=== PATIENT | female | born 1950 | race Caucasian/White ===

== ENCOUNTER 2016-08-29 14:10 | Emergency (ER) | payer MEDICARE, OTHER ==
[~2016-08-29] VITALS: Ht 157.5 cm; Wt 73.0 kg
[2016-08-29 14:16] VITALS: Ht 157.5 cm; Wt 73.0 kg
[2016-08-29] MEDS ORDERED: SOD CHLORIDE 0.9% 1,000 ML IV STA (18:50)
[2016-08-29 18:51] LABS: URINE BLOOD (Dip) POC Trace-lysed (NEGATIVE)
--- NOTE | 2016-08-29 18:57 | ERA ---
ER Documentation Chief Complaint Date/Time DATE: 08/29/16 TIME: 18:57 Chief Complaint sent by pmd for high blood glucose , pt asymptomatic , intake acc 522 HPI 66-year-old female with history of diabetes mellitus type 2 refer to the ED from [facility] for evaluation of hyperglycemia and fever. Patient presented to the clinic today for her usually scheduled appointment. Accu-Chek was high and temperature was 101.3. Patient is asymptomatic. She denies URI symptoms, odynophagia or body aches. Denies abdominal pain, nausea, vomiting, diarrhea or constipation. No chest pain or palpitations. No shortness of breath or cough. No leg pain or swelling. Denies headache or neck pain. No visual changes, focal weakness or numbness. No skin rash. No fevers or chills. ROS All systems reviewed and are negative except as per history of present illness. Medications Home Meds Active Scripts Nitrofurantoin Monohyd Macrocr* (Macrobid*) 100 Mg Capsr, 100 MG PO HS for 7 Days, CAP Prov:ALESIA ESPINOSA MD 08/29/16 Reported Medications Insulin Aspart* (Novolog Insulin Pen*) 100 Unit/Ml Soln, 5 UNIT SC WITH DINNER, EA 15 MIN AC BIDEST MEALS 08/29/16 Insulin Detemir (Levemir Flextouch) 100 Unit/1 Ml Insuln.pen, 28 UNIT SQ QAM 08/29/16 Glipizide* (Glipizide*) 10 Mg Tablet, 10 MG PO AC BREAKFAST DINNER, TAB 08/29/16 Clopidogrel Bisulfate (Clopidogrel) 75 Mg Tablet, 75 MG PO DAILY, #30 TAB 08/29/16 Metformin* (Glucophage*) 500 Mg Tab, 500 MG PO WITH LUNCH DINNER, #60 TAB 08/29/16 Allergies Allergies: Coded Allergies: No Known Allergy (Unverified , 08/29/16) PMhx/Soc Reviewed in chart. As per HPI. History of Surgery: Yes (brain) Anesthesia Reaction: No Hx Neurological Disorder: No Hx Respiratory Disorders: No Hx Cardiac Disorders: No Hx Psychiatric Problems: No Hx Miscellaneous Medical Probl: No Hx Alcohol Use: No Hx Substance Use: No Hx Tobacco Use: No Smoking Status: Never smoker FmHx No stroke or cancer. Not relevant to presenting complaint. Physical Exam Vitals Vital Signs Date Time Temp Pulse Resp B/P Pulse Ox O2 Delivery O2 Flow Rate FiO2 08/29/16 21:46 97.8 65 16 134/83 98 Room Air 08/29/16 19:30 97.9 71 20 130/78 96 Room Air 08/29/16 14:16 99.3 90 18 147/89 98 Physical Exam Const: Alert, no acute distress Head: Atraumatic Eyes: Normal Conjunctiva ENT: Normal External Ears, Nose and Mouth. Pharynx is clear without erythema or exudate Neck: Full range of motion. Nontender Resp: Breath sounds are equal and clear to auscultation bilaterally Cardio: Regular rate and rhythm, no murmurs Abd: Soft, non tender, non distended. Normal bowel sounds. No rebound or guarding. No masses or abnormal pulsations. Skin: No petechiae or rashes Back: No midline or flank tenderness Ext: No cyanosis, or edema Neur: Awake and alert. No focal deficit observed. Psych: Normal Mood and Affect Result Diagram: 08/29/16192908/29/161929 Results 24 hrs Laboratory Tests Test 08/29/16 14:21 08/29/16 16:39 08/29/16 18:50 08/29/16 18:52 Bedside Glucose 522mg/dL 479mg/dL Blood Gas Specimen Source Blood venous Arterial Blood Date Drawn 08/29/2016 7:20:18 PM Arterial Blood Gas Puncture Site VENOUS LINE Garett Test N/A Venous Blood pH 7.407 Venous Blood pCO2 (Temp Corrected) 41.9mmHG Venous Blood pO2 (Temp Corrected) 35.9mmHG Venous Blood HCO3 25.8mmol/L Venous Blood Oxygen Saturation 72.0mmHG Venous Blood Base Excess 0.9mmol/L Venous Blood Total Hemoglobin 15.0g/dl Venous Blood Oxyhemoglobin 71.5% Venous Blood Methemoglobin 0.2% Carboxyhemoglobin 0.5% Blood Gas Temperature 37.0C Blood Gas Modality ROOM AIR FiO2 21.0% Blood Gas Notified Whom UP Blood Gas Notified Time 08/29/2016 7:33:15 PM Bedside Urine pH (LAB) 5.5 Bedside Urine Protein (LAB) Negative Bedside Urine Glucose (UA) 0.50% Bedside Urine Ketones (LAB) Negative Bedside Urine Blood Trace-lysed Bedside Urine Nitrite (LAB) Positive Bedside Urine Leukocyte Esterase (L Negative Test 08/29/16 19:22 08/29/16 19:30 08/29/16 21:11 08/29/16 21:46 Bedside Glucose 361mg/dL 288mg/dL 239mg/dL White Blood Count 7.510^3/ul Red Blood Count 4.8410^6/ul Hemoglobin 14.2g/dl Hematocrit 41.8% Mean Corpuscular Volume 86.4fl Mean Corpuscular Hemoglobin 29.3pg Mean Corpuscular Hemoglobin Concent 34.0g/dl Red Cell Distribution Width 13.4% Platelet Count 62425^3/UL Mean Platelet Volume 10.8fl Neutrophils % 47.2% Lymphocytes % 44.0% Monocytes % 6.6% Eosinophils % 1.7% Basophils % 0.4% Nucleated Red Blood Cells % 0.0/100WBC Neutrophils # 3.510^3/ul Lymphocytes # 3.310^3/ul Monocytes # 0.510^3/ul Eosinophils # 0.110^3/ul Basophils # 0.010^3/ul Nucleated Red Blood Cells # 0.010^3/ul Urine Color LT. YELLOW Urine Clarity SLIGHTLY CLOUDY Urine pH 6.0 Urine Specific [place] 1.020 Urine Ketones NEGATIVE Urine Nitrite POSITIVE Urine Bilirubin NEGATIVE Urine Urobilinogen 0.2 E.U./dL Urine Leukocyte Esterase NEGATIVE Urine Microscopic RBC NONE SEEN/HPF Urine Microscopic WBC 0-2/HPF Urine Squamous Epithelial Cells FEW Urine Bacteria MODERATE Urine Yeast FEW Urine Hemoglobin TRACE Urine Glucose >=1000% Urine Total Protein NEGATIVE Sodium Level 139mmol/L Potassium Level 3.8mmol/L Chloride Level 99mmol/L Carbon Dioxide Level 26mmol/L Anion Gap 18 Blood Urea Nitrogen 17mg/dl Creatinine 1.02mg/dl Glucose Level 403mg/dl Lactic Acid Level 1.7mmol/L Calcium Level 9.8mg/dl Phosphorus Level 3.9mg/dl Magnesium Level 1.7mg/dl Total Bilirubin 0.4mg/dl Direct Bilirubin 0.00mg/dl Indirect Bilirubin 0.4mg/dl Aspartate Amino Transf (AST/SGOT) 23IU/L Alanine Aminotransferase (ALT/SGPT) 34IU/L Alkaline Phosphatase 82IU/L Total Protein 8.5g/dl Albumin 4.5g/dl Globulin 4.00g/dl Albumin/Globulin Ratio 1.12 Current Medications Medications (Trade) Dose Ordered Sig/Judith Route PRN Reason Start Time Stop Time Status Last Admin Dose Admin Sodium Chloride 1,000 ml @ 1,000 mls/hr Q1H STAT IV 08/29/16 18:50 08/29/16 19:49 DC 08/29/16 19:29 Ceftriaxone Sodium (Rocephin) 50 ml @ 100 mls/hr ONCE ONCE IVPB 08/29/16 20:30 08/29/16 20:59 DC 08/29/16 20:22 Insulin Human Lispro (Humalog) 10 unit ONCE STAT SC 08/29/16 20:13 08/29/16 20:14 DC 08/29/16 20:22 EKG: TIME: 19: 08. Sinus rhythm. Ventricular rate 76. Normal AR and QRS. Q waves in leads II, III, and aVF but no acute ST segment elevation or depression. No ectopy. EP Interpretation: Abnormal EKG. IMAGING: [ ] Procedures/MDM DOCUMENTS REVIEWED: ED nurse, no prior records. Clinic notes. ED COURSE: Normal saline 1 L. Humalog 10 units SQ. Rocephin 1 g IV piggyback. REEXAMINATION/REEVALUATION: Time: 22:00. Blood sugar 239 mg/dL. Afebrile. Vital signs stable. Abdomen soft nontender. Lungs clear. Asymptomatic. MEDICAL DECISION MAKIN-year-old female with history of diabetes mellitus type 2 refer to the ED from [facility] for evaluation of hyperglycemia and fever. Patient observed in the ED for over 4 hours during which time multiple examinations were performed. Presentation consistent with diabetic hyperglycemia. No DKA or HONK. At the clinic patient had a fever but none while in the ED. No fever, leukocytosis or criteria for systemic inflammatory response syndrome or sepsis. Blood sugar improved with intravenous hydration and subcutaneous insulin. Urinary tract infection without CVA tenderness or evidence of pyelonephritis. Abdominal exam is benign without tenderness, rebound, guarding or other signs of peritonitis. Lungs are clear without signs of pneumonia and imaging is deferred. Stable for discharge with Macrobid pending cultures, precautionary instructions and outpatient follow -up as counseled. Patient counseled regarding diagnostic results, treatment plan and need for follow-up. Departure Diagnosis: Primary Impression: Hyperglycemia due to type 2 diabetes mellitus Qualified Code: E11.65 - Type 2 diabetes mellitus with hyperglycemia, with long-term current use of insulin Additional Impression: Urinary tract infection without hematuria Qualified Code: N30.00 - Acute cystitis without hematuria Condition: ALESIA De Oliveira MD August 29, 2016 18:57
[2016-08-29 19:33] LABS: MODE ROOM AIR; MetHgb Venous 0.2 %; Sample Type Blood venous; Venous COHb 0.5 %; Venous Fraction OxyHgb 71.5 %
[2016-08-29 19:43] LABS: ADD SCAN DIFF NO
[2016-08-29 19:44] LABS: BASOPHILS % 0.4 % (0.0-2.0); EOSINOPHILS # 0.1 10^3/ul (0.0-0.5); EOSINOPHILS % 1.7 % (0.0-7.0); HEMATOCRIT 41.8 % (37.0-47.0); HEMOGLOBIN 14.2 g/dl (12.0-16.0); LYMPHOCYTES # 3.3 10^3/ul (0.8-2.9); MEAN CORPUSCULAR HEMOGLOBIN 29.3 pg (29.0-33.0); MEAN CORPUSCULAR VOLUME 86.4 fl (82.0-101.0); MEAN PLATELET VOLUME 10.8 fl (7.4-10.4); MONOCYTE # 0.5 10^3/ul (0.3-0.9); MONOCYTES % 6.6 % (0.0-11.0); NEUTROPHIL # 3.5 10^3/ul (1.6-7.5); NEUTROPHILS % 47.2 % (39.0-77.0); PLATELET COUNT 281 10^3/UL (140-415); RED BLOOD COUNT 4.84 10^6/ul (4.20-5.40); RED CELL DISTRIBUTION WIDTH 13.4 % (11.5-14.5); WHITE BLOOD COUNT 7.5 10^3/ul (4.8-10.8)
[2016-08-29 19:55] LABS: ADD UMIC YES; URINE BILIRUBIN (Dip) NEGATIVE (NEGATIVE); URINE BLOOD (Dip) TRACE (NEGATIVE); URINE COLOR LT. YELLOW (YELLOW); URINE GLUCOSE (Dip) >=1000 % (NEGATIVE); URINE KETONES (Dip) NEGATIVE (NEGATIVE); URINE LEUKOCYTE ESTERASE (Dip) NEGATIVE (NEGATIVE); URINE NITRITE (Dip) POSITIVE (NEGATIVE); URINE TOTAL PROTEIN (Dip) NEGATIVE (NEGATIVE); URINE UROBILINOGEN (Dip) 0.2 E.U./dL (0.1-1.0)
[2016-08-29 19:57] LABS: ALBUMIN 4.5 g/dl (3.3-4.9)
[2016-08-29 19:58] LABS: POTASSIUM 3.8 mmol/L (3.5-5.1)
[2016-08-29 20:00] LABS: ALBUMIN/GLOBULIN RATIO 1.12; BILIRUBIN,INDIRECT 0.4 mg/dl (0-1.1); BILIRUBIN,TOTAL 0.4 mg/dl (0.2-1.3); CALCIUM 9.8 mg/dl (8.4-10.2); CREATININE 1.02 mg/dl (0.44-1.00); PHOSPHORUS 3.9 mg/dl (2.5-4.9); TOTAL PROTEIN 8.5 g/dl (6.1-8.1)
[2016-08-29 20:01] LABS: MAGNESIUM 1.7 mg/dl (1.7-2.5)
[2016-08-29 20:11] LABS: BACTERIA,URINE MODERATE; SQUAMOUS EPITHELIAL CELL,UR FEW; URINE RBCS NONE SEEN /HPF (0)
[2016-08-29] MEDS ORDERED: INSULIN LISPRO 100 UNIT/ML VIAL SC STA (20:13)
[2016-08-29] MEDS ORDERED: CLOP75TA27 PO (20:24)
[2016-08-29] MEDS ORDERED: METF500T4 PO (20:24)
[2016-08-29] MEDS ORDERED: GLIP-95 PO (20:24)
[2016-08-29] MEDS ORDERED: INSU100I27 SQ (20:25)
[2016-08-29] MEDS ORDERED: NOVO3I SC (20:25)
[2016-08-29] MEDS ORDERED: CEFTRIAXONE 1 GM/50 ML (PMX) 50 ML IVPB ONE (20:30)
[2016-08-29 21:46] VITALS: BP 134/83; PULSE 65; RESP 16; TEMP 97.8
[2016-08-29] MEDS ORDERED: NITR-58 PO (23:00)
== END 2016-08-29 23:18 | disposition home or self-care (01) ==
LOC: E/R 14:10
DX: E11.65 Type 2 diabetes mellitus with hyperglycemia (principal); N30.00 Acute cystitis without hematuria; Z79.4 Long term (current) use of insulin; Z79.84 Long term (current) use of oral hypoglycemic drugs
CPT/HCPCS: 36415; 80053; 81001; 82803; 82962; 83605; 83735; 84100; 85025; 87040; 87086; 93005; 96372; 96374; 99284; J0696; J1815; J7030; 81003

== ENCOUNTER 2018-03-31 17:18 | Inpatient (IN) | END 2018-04-03 15:10 | DRG 638 ==